=== PATIENT | female | born 1965 | race Caucasian/White ===

== ENCOUNTER 2017-06-10 08:03 | Day surgery (SDC) | payer OTHER ==
[2017-06-10 08:23] VITALS: BMI 26.5
[2017-06-10] MEDS ORDERED: Propofol 10 mg/ml Inj (20 ML) ONE ×3 (09:29→09:56)
[2017-06-10 10:18] VITALS: TEMP 98.2; O2SAT 100
[2017-06-10 11:51] VITALS: BP 127/67; PULSE 57; RESP 14
== END 2017-06-10 11:10 | disposition home or self-care (01) ==
LOC: C.ENDO 08:03
PROVIDERS: ATTEND Internal Medicine
DX: K29.70 Gastritis, unspecified, without bleeding (principal); K30 Functional dyspepsia; Z12.11 Encounter for screening for malignant neoplasm of colon; D12.7 Benign neoplasm of rectosigmoid junction; D12.5 Benign neoplasm of sigmoid colon; D12.3 Benign neoplasm of transverse colon; K57.90 Diverticulosis of intestine, part unspecified, without perforation or abscess without bleeding; K64.8 Other hemorrhoids
CPT/HCPCS: 43239; 45380; 84703; 88305; J2001; J2704